=== PATIENT | female | born 1950 | race Caucasian/White ===

== ENCOUNTER 2022-06-19 07:45 | Emergency (ER) | payer MEDICARE, SELFPAY ==
[2022-06-19 08:10] VITALS: BP 148/66; PULSE 62; RESP 20; TEMP 36.6; O2SAT 100; BMI 29.7
--- NOTE | 2022-06-19 08:10 | DI.RAD.S_ITS ---
PROCEDURE: XR CHEST 2V INDICATIONS: coughing up blood TECHNIQUE: 2 views of the chest were acquired. COMPARISON: None. FINDINGS: Surgical changes and devices: Left chest dual lead pacemaker. Lungs and pleura: A 3.7 centimeter rounded opacity projects over the right perihilar region on the frontal and lateral views. Trace amount of fluid present in the minor fissure. No large pleural effusion. No pneumothorax. Mediastinum: Heart size is normal. Bones and chest wall: No suspicious bony abnormalities. Soft tissues appear unremarkable. IMPRESSION: A 3.7 centimeter opacity projecting over the right perihilar region could represent a mass or region of consolidation. Further evaluation with CT of the chest with contrast is recommended. Dictated by: Wyatt Young M.D. on 06/19/2022 at 8:31 Approved by: Wyatt Young M.D. on 06/19/2022 at 8:36
--- NOTE | 2022-06-19 09:18 | ED.SOB ---
HPI - SOB/Dyspnea General Chief Complaint: Shortness of Breath/Dyspnea Stated Complaint: coughing up blood Time Seen by Provider: 06/19/22 08:45 Source: patient Mode of arrival: Family Vehicle Limitations: no limitations History of Present Illness HPI Narrative: This is a 72-year-old female with history of atrial fibrillation on Eliquis, sick sinus syndrome with pacemaker, rheumatoid arthritis, hypertension, dyslipidemia, prior kidney stones and gastric bypass. Patient presents with an episode of hemoptysis this morning at about 7:00 a.m. patient states she coughed up about a quarter cup of blood she denies any chest pain, no shortness of breath. She states she felt like she had a rattle in her chest kind of on the right side she coughed which cleared the rattle sensation and had a blood. She states it was only 1 episode. She is not had any episodes in the past. She denies any syncope or lightheadedness., no nausea, no vomiting, no issues with bowel movements or urination, no black or bloody stools, no nosebleeds or epistaxis, no petechiae or bruising that seems atypical. She was treated with Keflex about a week ago for UTI which he is completed. She is on Eliquis for her atrial fibrillation. She is allergic to penicillin, she states quinolones give her tendon issues. She does not have any history of tobacco abuse, no alcohol or illicit. They are currently visiting from [place] and have been driving here and are supposed to return in several days. Related Data Allergies Allergy/AdvReac Type Severity Reaction Status Date / Time Penicillins Allergy Rash Verified 06/19/22 08:08 Quinolones Allergy Muscle Pain Verified 06/19/22 08:08 Review of Systems Review of Systems ROS Unobtainable: All systems reviewed & are unremarkable except as noted in HPI and below Patient History Social History Smoking Status: Never smoker Smoking Status: Never smoker alcohol intake frequency: holidays/special occasions only Substance Use Type: does not use Exam Narrative Exam Narrative: GENERAL: Alert and oriented x three, elderly female in mild distress HEENT: Head normocephalic, atraumatic, EOMI, pupils reactive, face symmetric, moist mucous membranes NECK: Supple, full range of motion CARDIOVASCULAR: Regular rate and rhythm without murmurs, rubs or gallops. No JVD. No swelling bilateral lower extremities. RESPIRATORY: Breath sounds equal bilaterally, no wheezes rales or rhonchi. No tachypnea or accessory muscle use. ABDOMEN: Soft, nontender. Normoactive bowel sounds all 4 quadrants. No guarding or rebound, rigidity, no mass : No CVA tenderness EXTREMITIES: Normal range of motion, no clubbing or edema. Neurovascularly intact NEUROLOGICAL: Cranial nerves II through XII grossly intact. Moving all extremities SKIN: Warm, dry, no petechiae, no rashes or lesions, no petechiae or ecchymosis. Initial Vital Signs Initial Vital Signs: Vital Signs Temperature 97.9 F 06/19/22 08:10 Pulse Rate 62 06/19/22 08:10 Respiratory Rate 20 06/19/22 08:10 Blood Pressure 148/66 H 06/19/22 08:10 Pulse Oximetry 100 06/19/22 08:10 Oxygen Delivery Method 06/19/22 08:10 Course Orders Ordered: ED Orders 06/19/22 08:10 Chest [XR chest 2V] Stat 06/19/22 08:18 EKG-12 Lead Stat 06/19/22 09:30 Complete Blood Count AUTO DIFF Stat Comprehensive Metabolic Panel Stat D Dimer Stat Lipase Stat Partial Thromboplastin Time Stat Prothrombin Time INR Stat Troponin & CK Cardiac Panel Stat 06/19/22 10:14 CT chest w con Stat Vital Signs Vital signs: Vital Signs - 8 hr 06/19/22 08:10 06/19/22 10:00 Temperature 97.9 F Pulse Rate 62 76 Respiratory Rate 20 16 Blood Pressure 148/66 H 145/62 H Pulse Oximetry 100 97 Oxygen Delivery Method Room Air Room Air MDM - SOB/Dyspnea Lab Data Result diagrams: 06/19/22 09:30 06/19/22 09:30 Labs: Lab Results 06/19/22 06/19/22 06/19/22 Range/Units 09:30 09:30 09:30 WBC 8.4 (4.5-11.0) X10^3/uL RBC 3.92 L (4.0-5.2) X10^6/uL Hgb 11.4 L (12.0-16.0) g/dL Hct 33.8 L (36-46) % MCV 86.2 (80-100) fL MCH 29.1 (26-34) PG MCHC 33.8 (30-36) % RDW 12.9 (11.6-14.8) % Plt Count 209 (150-400) X10^3/uL Neut % (Auto) 80.5 H (50-75) % Lymph % (Auto) 9.7 L (25-40) % [place] % (Auto) 8.3 (3-14) % Eos % (Auto) 1.1 L (2-4) % Baso % (Auto) 0.4 (0-2) % Neut # (Auto) 6800 (6532-6986) /uL Lymph # (Auto) 800 L (9520-0979) /uL [place] # (Auto) 700 (0-900) /uL Eos # (Auto) 100 (0-450) /uL Baso # (Auto) 0 (0-100) /uL PT 19.1 H (10.1-12.7) SECONDS INR 1.7 H (0.9-1.3) APTT 41 H (26.4-36.2) SECONDS D-Dimer 213 (<230) ng/mL Sodium 141 (137-145) mmol/L Potassium 4.4 (3.4-5.1) mmol/L Chloride 105 (98-107) mmol/L Carbon Dioxide 27 (22-32) mmol/L BUN 15 (7-17) mg/dL Creatinine 0.73 (0.52-1.04) mg/dL Estimated GFR > 60 (>60) mL/min BUN/Creatinine Ratio 20.5 (6-22) Glucose 146 H (80-110) mg/dL Calcium 8.8 (8.4-10.2) mg/dL Total Bilirubin 0.5 (0.2-1.3) mg/dL AST 24 (14-36) IU/L ALT 20 (<35) IU/L Alkaline Phosphatase 87 (38-126) U/L Total Creatine Kinase 190 H (30-135) U/L CK-MB (CK-2) 2.26 (<2.37) ng/mL CK-MB (CK-2) Rel Index 1.2 L (1.5-5.0) % Troponin I < 0.012 (0.01-0.034) ng/mL Total Protein 7.3 (6.3-8.2) g/dL Albumin 4.5 (3.5-5.0) g/dL Globulin 2.8 (1.7-4.1) g/dL Albumin/Globulin Ratio 1.6 (1.0-2.8) Lipase 82 (23-300) U/L Imaging Data Chest x-ray: Radiologist's Impression: Close Chest X-Ray (Signed) Wyatt Young - 06/19/22 Launch?[address] [address] XRay Report Signed Patient: Vivian Haro MR#: [id number] : 1950 Acct:[id number] Age/Sex: 72 / F Date of Service: 06/19/22 Loc: ED Accession Number: [id number] ?? Procedure: XR chest 2V Ordering Provider: Minoo Gale D.O. PROCEDURE:? XR CHEST 2V ? INDICATIONS:? coughing up blood ? TECHNIQUE:? 2 views of the chest were acquired.? ? COMPARISON:? None. ? FINDINGS:? ? Surgical changes and devices:? Left chest dual lead pacemaker.? ? Lungs and pleura:? A 3.7 centimeter rounded opacity projects over the right perihilar region on the frontal and lateral views.? Trace amount of fluid present in the minor fissure.? No large pleural effusion.? No pneumothorax.? ? Mediastinum:? Heart size is normal.? ? Bones and chest wall:? No suspicious bony abnormalities.? Soft tissues appear unremarkable.? ? IMPRESSION:? A 3.7 centimeter opacity projecting over the right perihilar region could represent a mass or region of consolidation.? Further evaluation with CT of the chest with contrast is recommended. ? ? Dictated by: Wyatt Young M.D. on 06/19/2022 at 8:31 ? ? Approved by: Wyatt Young M.D. on 06/19/2022 at 8:36?? CT scan - chest: Radiologist's Impression: Close Chest CT (Signed) Daniela Saldana - 06/19/22 Chest X-Ray (Signed) Wyatt Young - 06/19/22 Launch?[address] [address] [address] Scan Report Signed Patient: Vivian Haro MR#: [id number] : 1950 Acct:[id number] Age/Sex: 72 / F Date of Service: 06/19/22 Loc: ED Accession Number: [id number] ?? Procedure: CT chest w con Ordering Provider: Minoo Gale D.O. PROCEDURE:? CT CHEST W CON ? INDICATIONS:? hemoptysis, right perihilar opacity ? TECHNIQUE:? After the administration of intravenous contrast, 5 mm thick sections acquired from the pulmonary apices to the posterior costophrenic angles.? 1 mm axial lung, 5 mm thick coronal and sagittal reformats and 7 mm axial MIP were acquired.? For radiation dose reduction, the following was used:? automated exposure control, adjustment of mA and/or kV according to patient size.? ? COMPARISON:? [facility], CR, XR CHEST 2V, 06/19/2022, 8:16. ? FINDINGS:? Image quality:? Excellent.? ? Lungs and pleura:? There is a 4.3 x 3.8 x 2.4 cm mass in the right hilar area, suspicious for primary lung cancer.? ? There is a 0.8 cm nodule in the right upper lobe abutting the major fissure (series 3 image 157). ? No acute air space opacities.? No pleural effusions or pneumothorax.? Central and peripheral airways are patent and normal in caliber.? ? Mediastinum:? Heart size is normal.? Trace pericardial effusion.? There is a cardiac pacemaker. ? There is a 1.4 cm right hilar lymph node, suspicious for metastasis.? No enlarged mediastinal lymph nodes.? ? Thoracic aorta and central pulmonary arteries are normal in size.? Esophagus is normal in caliber.? Small hiatal hernia.? ? Bones and chest wall:? No suspicious bony lesions.? No vertebral body compression fractures.? No axillary or supraclavicular adenopathy by size criteria.? Thyroid gland is normal .? ? Abdomen:? There is a 1.3 cm left adrenal nodule.? Hepatic steatosis.? Postsurgical changes related to gastric bypass. ? IMPRESSION:? ? 1. A 4.3 x 3.8 x 2.4 cm right perihilar mass suspicious for primary lung cancer. ? 2. A 0.8 cm nodule in the right upper lobe, suspicious for pulmonary metastasis. ? 3. Right hilar lymphadenopathy suspicious for shiv metastasis. ? 4. A 1.3 cm left adrenal nodule.? Recommend adrenal protocol CT or MRI for follow-up.? Dictated by: Daniela Saldana M.D. on 06/19/2022 at 10:35 ? ? Approved by: Daniela Saldana M.D. on 06/19/2022 at 10:54?? ECG Data Attestation: I personally reviewed and interpreted this ECG as follows: Prior ECG tracings: not available for review Interpretation: Atrial paced rhythm prolonged AV conduction rate of 70 4p are 236 QRS is 78 QTC 446. No acute ST elevation or depression noted. MDM Narrative Medical decision making narrative: This is a 72-year-old female anticoagulated on Eliquis who presents with 1 episode of hemoptysis who appears to be hemodynamically stable at this time. Patient had a rattling sensation in her right chest just before coughed had hemoptysis. She is not had any additional episodes. EKG does not show acute changes possible 3.7 m opacity over the right perihilar region which is the side she felt a rattle on. She had labs including CBC, coags, troponin and D-dimer included to evaluate if CT chest with contrast versus angio is more appropriate. Patient labs do not show major change. Troponin and D-dimer are both negative. CT with contrast was ordered shows perihilar mass with additional nodule, lymphadenopathy an adrenal nodule. Patient states adrenal nodule is known. Discussed this is likely lung cancer, she lives in [place] they are supposed to return tomorrow by driving. We discussed holding her anticoagulation but she is also increased risk for pulmonary emboli with driving. At this time she prefers to continue but will stop if having any additional hemoptysis. Imaging was included with patient including discs, reports, labs she was asked to contact her primary care to initiate follow-up with oncology and for biopsy to initiate treatment. All questions answered patient appears to be stable for discharge at this time with no additional hemoptysis. Discharge Plan Departure Patient Disposition: Home Clinical Impression: Hemoptysis, Mass of right lung, Adrenal nodule Instructions: DI for Lung Cancer Activity Restrictions/Additional Instructions: Your imaging today shows a perihilar lung mass 4.3cm x 3.8cm x 2.4cm and right lung nodule as well as lymphadenopathy on the right side. There is also a left adrenal nodule, this may be unrelated Call your physician today to facilitate follow-up with Oncology and set up for potential biopsy to get a sample of tissue for formal diagnosis and help with treatment. Included a are discs with your CT imaging. Lab work shows a mild anemia but no other major changes. I would recommend holding your Eliquis if you have any additional hemoptysis or coughing up blood. You can continue your other home medications as prescribed. Please return or go to the nearest emergency department if you have recurrent hemoptysis, new chest pain, shortness of breath or difficulty breathing, passing out, persistent vomiting, new swelling in your extremities or other new or concerning symptoms. Visit Report Forms: Patient Portal/API
[2022-06-19 09:51] LABS: INR 1.7 (0.9-1.3); Prothrombin Time 19.1 SECONDS (10.1-12.7)
[2022-06-19 09:53] LABS: Alanine Aminotransferase 20 IU/L (<35); Albumin 4.5 g/dL (3.5-5.0); Albumin Globulin Ratio 1.6 (1.0-2.8); Alkaline Phosphatase 87 U/L (38-126); Aspartate Aminotransferase 24 IU/L (14-36); BUN Creatinine Ratio 20.5 (6-22); Bilirubin Total 0.5 mg/dL (0.2-1.3); Blood Urea Nitrogen 15 mg/dL (7-17); Calcium 8.8 mg/dL (8.4-10.2); Carbon Dioxide 27 mmol/L (22-32); Chloride 105 mmol/L (98-107); Creatine Kinase 190 U/L (30-135); Estimated Glomerular Filt Rate > 60 mL/min (>60); Globulin 2.8 g/dL (1.7-4.1); Glucose 146 mg/dL (80-110); HEMOLYSIS < 15 (0-50); Lipase 82 U/L (23-300); Potassium 4.4 mmol/L (3.4-5.1); Sodium 141 mmol/L (137-145); Total Protein 7.3 g/dL (6.3-8.2)
[2022-06-19 09:54] LABS: Add Manual Diff / Slide Review NO; Basophils Absolute Auto 0 /uL (0-100); Basophils Percent Auto 0.4 % (0-2); D Dimer 213 ng/mL (<230); Eosinophils Absolute Auto 100 /uL (0-450); Eosinophils Percent Auto 1.1 % (2-4); Hematocrit 33.8 % (36-46); Hemoglobin 11.4 g/dL (12.0-16.0); Lymphocytes Absolute Auto 800 /uL (1100-4500); Lymphocytes Percent Auto 9.7 % (25-40); Mean Corpuscular HGB Conc 33.8 % (30-36); Mean Corpuscular Hemoglobin 29.1 PG (26-34); Mean Corpuscular Volume 86.2 fL (80-100); Monocytes Absolute Auto 700 /uL (0-900); Monocytes Percent Auto 8.3 % (3-14); Neutrophils Absolute Auto 6800 /uL (1500-7000); Neutrophils Percent Auto 80.5 % (50-75); PTT Partial Thromboplastin Tim 41 SECONDS (26.4-36.2); Platelet Count 209 X10^3/uL (150-400); Red Blood Cell Count 3.92 X10^6/uL (4.0-5.2); Red Cell Distribution Width 12.9 % (11.6-14.8); White Blood Cell Count 8.4 X10^3/uL (4.5-11.0)
[2022-06-19 10:00] VITALS: BP 145/62; PULSE 76; RESP 16; O2SAT 97
[2022-06-19 10:05] LABS: Troponin I < 0.012 ng/mL (0.01-0.034)
[2022-06-19 10:08] LABS: CKMB % Relative Index 1.2 % (1.5-5.0); Creatine Kinase MB 2.26 ng/mL (<2.37)
--- NOTE | 2022-06-19 10:14 | DI.CT.S_ITS ---
PROCEDURE: CT CHEST W CON INDICATIONS: hemoptysis, right perihilar opacity TECHNIQUE: After the administration of intravenous contrast, 5 mm thick sections acquired from the pulmonary apices to the posterior costophrenic angles. 1 mm axial lung, 5 mm thick coronal and sagittal reformats and 7 mm axial MIP were acquired. For radiation dose reduction, the following was used: automated exposure control, adjustment of mA and/or kV according to patient size. COMPARISON: [facility], CR, XR CHEST 2V, 06/19/2022, 8:16. FINDINGS: Image quality: Excellent. Lungs and pleura: There is a 4.3 x 3.8 x 2.4 cm mass in the right hilar area, suspicious for primary lung cancer. There is a 0.8 cm nodule in the right upper lobe abutting the major fissure (series 3 image 157). No acute air space opacities. No pleural effusions or pneumothorax. Central and peripheral airways are patent and normal in caliber. Mediastinum: Heart size is normal. Trace pericardial effusion. There is a cardiac pacemaker. There is a 1.4 cm right hilar lymph node, suspicious for metastasis. No enlarged mediastinal lymph nodes. Thoracic aorta and central pulmonary arteries are normal in size. Esophagus is normal in caliber. Small hiatal hernia. Bones and chest wall: No suspicious bony lesions. No vertebral body compression fractures. No axillary or supraclavicular adenopathy by size criteria. Thyroid gland is normal . Abdomen: There is a 1.3 cm left adrenal nodule. Hepatic steatosis. Postsurgical changes related to gastric bypass. IMPRESSION: 1. A 4.3 x 3.8 x 2.4 cm right perihilar mass suspicious for primary lung cancer. 2. A 0.8 cm nodule in the right upper lobe, suspicious for pulmonary metastasis. 3. Right hilar lymphadenopathy suspicious for shiv metastasis. 4. A 1.3 cm left adrenal nodule. Recommend adrenal protocol CT or MRI for follow-up. Dictated by: Daniela Saldana M.D. on 06/19/2022 at 10:35 Approved by: Daniela Saldana M.D. on 06/19/2022 at 10:54
[2022-06-19 10:32] VITALS: BP 150/66; PULSE 65; RESP 11; O2SAT 98
[2022-06-19 11:00] VITALS: BP 161/67; PULSE 60; RESP 15; O2SAT 99
[2022-06-19 11:30] VITALS: BP 170/71; PULSE 60; RESP 17; O2SAT 99
== END 2022-06-19 12:06 | disposition home or self-care (01) ==
PROVIDERS: Emergency Provider Emergency Medicine
DX: R04.2 Hemoptysis (principal); R91.8 Other nonspecific abnormal finding of lung field; E27.8 Other specified disorders of adrenal gland
CPT/HCPCS: 36415; 71046; 71260; 80053; 82550; 82553; 83690; 84484; 85025; 85379; 85610; 85730; 93005; 99284; Q9967